=== PATIENT | female | born 1960 | race Two or more races ===

== ENCOUNTER 2021-12-22 18:37 | Emergency (ER) | payer SELFPAY ==
[2021-12-22 19:28] VITALS: BP 151/67
[2021-12-22 22:09] LABS: Urine Bacteria NONE SEEN /hpf (None Seen); Urine Blood Negative /uL (Negative); Urine Hyaline Cast FEW /lpf (0 - 2); Urine Mucus FEW (None Seen); Urine Specific Gravity 1.034 (1.001-1.035); Urine WBC 10 /hpf (0 - 5)
== END 2021-12-23 07:42 | disposition left against medical advice (07) ==
LOC: ER 18:37 → EDBD 18:37 → ER 12-23 07:42
DX: R10.9 Unspecified abdominal pain (principal); Z53.21 Procedure and treatment not carried out due to patient leaving prior to being seen by health care provider
CPT/HCPCS: 81001